=== PATIENT | female | born 1995 | race African-American/Black ===

== ENCOUNTER 2019-02-25 14:37 | Emergency (ER) | payer OTHER ==
[~2019-02-25] VITALS: Ht 154.9 cm; Wt 68.0 kg
[2019-02-25] MEDS ORDERED: NORFLEX100 MG PO (17:00)
[2019-02-25] MEDS ORDERED: MOBIC7.5 MG PO (17:00)
[2019-02-25 17:13] VITALS: BP 118/65
== END 2019-02-25 17:30 | disposition home or self-care (01) ==
LOC: ER 14:37
DX: S13.4XXA Sprain of ligaments of cervical spine, initial encounter (principal); S16.1XXA Strain of muscle, fascia and tendon at neck level, initial encounter; S39.012A Strain of muscle, fascia and tendon of lower back, initial encounter; S29.012A Strain of muscle and tendon of back wall of thorax, initial encounter; S80.01XA Contusion of right knee, initial encounter; V89.2XXA Person injured in unspecified motor-vehicle accident, traffic, initial encounter; Y93.89 Activity, other specified; Y92.89 Other specified places as the place of occurrence of the external cause; Y99.8 Other external cause status; Z88.1 Allergy status to other antibiotic agents

== ENCOUNTER 2020-01-04 17:52 | Emergency (ER) | payer OTHER ==
[~2020-01-04] VITALS: Ht 157.5 cm; Wt 63.5 kg
[~2020-01-04 17:52] MED LIST: MOBIC7.5 MG PO; NORFLEX100 MG PO
[2020-01-04 18:17] VITALS: BP 124/84
[2020-01-04] MEDS ORDERED: CYCLOBENZAPRINE5 MG PO (20:56)
[2020-01-04] MEDS ORDERED: MOBIC7.5 MG PO (20:56)
== END 2020-01-04 21:00 | disposition home or self-care (01) ==
LOC: ER 17:52
DX: M54.9 Dorsalgia, unspecified (principal); M54.2 Cervicalgia; R51 Headache; R10.30 Lower abdominal pain, unspecified; V89.2XXA Person injured in unspecified motor-vehicle accident, traffic, initial encounter; Y93.89 Activity, other specified; Y92.89 Other specified places as the place of occurrence of the external cause; Y99.8 Other external cause status

== ENCOUNTER → 2020-01-10 | Outpatient (CLI) | payer OTHER ==
[~2020-01-10] MED LIST changes: +CYCLOBENZAPRINE5 MG PO
== END ==
LOC: RAD 16:41
DX: M43.17 Spondylolisthesis, lumbosacral region (principal); V89.2XXA Person injured in unspecified motor-vehicle accident, traffic, initial encounter